=== PATIENT | female | born 1955 | race African-American/Black ===

== ENCOUNTER 2016-07-24 12:41 | Emergency (ER) | payer OTHER ==
--- NOTE | 2016-07-24 12:59 | ER Document Report ---
ED Medical Screen (RME) - General Chief Complaint: Leg Pain Stated Complaint: BACK PAIN Mode of Arrival: Ambulatory Information source: Patient Notes: 61 y/o F presents to ED c/o lower back pain which radiates to left buttocks over the last 2 days. Denies obvious injury or trauma. Reports similar episodes in the past. Denies fever, saddle numbness, or incontinence. Received 60 mg IM Toradol prior to arrival. I have greeted and performed a rapid initial assessment of this patient. A comprehensive ED assessment and evaluation of the patient, analysis of test results and completion of the medical decision making process will be conducted by additional ED providers. TRAVEL OUTSIDE OF THE [place] IN LAST 30 DAYS: No - Related Data Allergies/Adverse Reactions: No Known Allergies Allergy (Verified 07/24/16 12:50) Past Medical History - Social History Chew tobacco use (# tins/day): No Frequency of alcohol use: None Drug Abuse: None Endocrine Medical History: Reports: Hx Diabetes Mellitus Type 2 Renal/ Medical History: Denies: Hx Peritoneal Dialysis - Immunizations Hx Diphtheria, Pertussis, Tetanus Vaccination: No Physical Exam - Vital signs Vitals: Temp Pulse Resp BP Pulse Ox 98.0 F 67 18 177/68 H 96 07/24/16 12:52 07/24/16 12:52 07/24/16 12:52 07/24/16 12:52 07/24/16 12:52 - General General appearance: Appears well, Alert In distress: None - Respiratory Respiratory status: No respiratory distress - Neurological Neuro grossly intact: Yes Cognition: Normal Orientation: AAOx4 Hamilton Coma Scale Eye Opening: Spontaneous Hamilton Coma Scale Verbal: Oriented Hamilton Coma Scale Motor: Obeys Commands Hamilton Coma Scale Total: 15 Speech: Normal Course - Vital Signs Vital signs: Temp Pulse Resp BP Pulse Ox 98.0 F 67 18 177/68 H 96 07/24/16 12:52 07/24/16 12:52 07/24/16 12:52 07/24/16 12:52 07/24/16 12:52
[2016-07-24] MEDS ORDERED: DIAZEPAM INJ 10 MG/2 ML DISP.SYRIN IM ONE (17:06)
--- NOTE | 2016-07-24 17:11 | ER Document Report ---
HPI - HPI Onset: Other - 2 days Quality of pain: Stabbing Severity: Moderate Pain Level: 2 Context: Patient presents to the emergency department with complaints of left buttocks pain that goes down her left leg. 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 She denies trauma, denies urinary or bowel incontinence/retention. Denies numbness or tingling. She reports her left buttock started hurting 2 days ago. Today she went to see her primary care provider by name and hurt so bad that they sent her here. Patient reports irregular shot of Toradol while she was there and it helped for a while but now the pain is coming back. She denies back pain. She denies other symptoms such as fever vomiting diarrhea. She reports she had the flu 2 weeks ago. She denies loss of weight cancers or history of IV drug use, or steroid injections. 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 Lives with: Family Family History: None Patient has suicidal ideation: No Patient has homicidal ideation: No - Past Medical History Cardiac Medical History: Reports: Hx Hypertension Endocrine Medical History: Reports: Hx Diabetes Mellitus Type 2 Renal/ Medical History: Denies: Hx Peritoneal Dialysis Surgical Hx: Negative - Immunizations Hx Diphtheria, Pertussis, Tetanus Vaccination: No Vertical Provider Document - CONSTITUTIONAL Agree With Documented VS: Yes Exam Limitations: No Limitations General Appearance: WD/WN, Moderate Distress - guarding her buttocks, pushes my hand away when I palpate the area - INFECTION CONTROL TRAVEL OUTSIDE OF THE [place] IN LAST 30 DAYS: No - HEENT HEENT: Atraumatic, Normocephalic - NECK Neck: Normal Inspection, Supple - RESPIRATORY Respiratory: Breath Sounds Normal, No Respiratory Distress O2 Sat by Pulse Oximetry: 96 - CARDIOVASCULAR Cardiovascular: Regular Rate - GI/ABDOMEN Gastrointestinal: Abdomen Soft, Abdomen Non-Tender - BACK Back: Normal Inspection - denies low back pain, good distal movement and sensation - MUSCULOSKELETAL/EXTREMETIES Musculoskeletal/Extremeties: Tender - left buttock ttp, ttp down left leg - NEURO Level of Consciousness: Awake, Alert, Appropriate Motor/Sensory: No Motor Deficit - DERM Integumentary: Warm, Dry Course - Re-evaluation Re-evalutation: 07/24/16 17:47 Patient looks and feels better. Up walking around the room. Instructed on medications and importance of follow-up with her primary care provider for recheck. She verbalized understanding. The patient presents with lleft sided buttock pain denies back pain, without signs of spinal cord compression, cauda equine syndrome, infection, aneurysm, or other serious etiology. The patient is neurologically intact. The patient has good distal movement and sensation, denies urinary or bowel incontinence/ retention. Given the extremely low risk of these diagnosis, further testing and evaluation for these possibilities does not appear to be indicated at this time. The patient has been instructed to return if the symptoms worsen or change in anyway. - Vital Signs Vital signs: Temp Pulse Resp BP Pulse Ox 98.0 F 67 18 177/68 H 96 07/24/16 12:52 07/24/16 12:52 07/24/16 12:52 07/24/16 12:52 07/24/16 12:52 Discharge - Discharge Clinical Impression: Left buttock pain, Elevated blood pressure reading Sciatica Qualifiers: Laterality: left Qualified Code(s): M54.32 - Sciatica, left side Condition: Stable Disposition: HOME, SELF-CARE Instructions: Muscle Relaxers ([facility]), Oral Narcotic Medication ([facility]), Sciatica ( [facility]), Ibuprofen (General) ([facility]) Additional Instructions: *You have been evaluated for left buttocks pain, sciatica *Monitor your blood pressure. Your blood pressure was elevated today. This may be because you were anxious, in pain or because you need medication. It is important to follow up with your primary care provider for full evaluation. *Take medication as prescribed *Rest *Follow up with a primary care provider within one week for recheck *Return to ED for worsening condition, changes, needs Prescriptions: Cyclobenzaprine HCl [Flexeril 5 mg Tablet] 5 mg PO TID #15 tablet Hydrocodone/Acetaminophen [[place] 5-325 Tablet] 1 each PO QID #15 tablet Ibuprofen [Motrin 800 mg Tablet] 800 mg PO TID #30 tablet Forms: Elevated Blood Pressure, Return to Work
[2016-07-24 17:58] VITALS: BP 183/89
== END 2016-07-24 17:58 | disposition home or self-care (01) ==
LOC: ER 12:41
DX: M54.32 Sciatica, left side (principal); M79.1 Myalgia; I10 Essential (primary) hypertension; E11.9 Type 2 diabetes mellitus without complications
CPT/HCPCS: 99283; 96372; J3360

== ENCOUNTER → 2017-07-25 | Outpatient (CLI) | payer OTHER ==
--- NOTE | 2017-07-25 12:51 | RADIOLOGY REPORT (SQ) ---
EXAM DESCRIPTION: HIP LEFT AP/LATERAL COMPLETED DATE/TIME: 07/25/2017 11:15 am REASON FOR STUDY: M25.552 PAIN IN LEFT HIP COMPARISON: None. NUMBER OF VIEWS: Two views left hip, AP pelvis and frog lateral. LIMITATIONS: None. FINDINGS: Normal bone density with relative maintenance and symmetry of the bilateral hip joint spac es. SI joints intact. Mild lower lumbar spondylosis. No fracture or suspicious bone lesion. OTHER: No other significant finding. IMPRESSION: As above. Hips look relatively maintained. TECHNICAL DOCUMENTATION: JOB ID: [id number]
== END ==
LOC: RAD 10:59
PROVIDERS: ATTEND Physician Assistant
DX: M25.552 Pain in left hip (principal)

== ENCOUNTER → 2018-03-25 | Outpatient (CLI) | payer OTHER ==
--- NOTE | 2018-03-26 13:08 | WOMENS IMAGING REPORT ---
EXAM DESCRIPTION: 3D SCREENING MAMMO BILAT COMPLETED DATE/TIME: 03/25/2018 2:56 pm REASON FOR STUDY: SCREENING MAMMO Z12.31 ENCNTR SCREEN MAMMOGRAM FOR MALIGNANT NEOPLASM OF TRENT COMPARISON: 2011, 2012 TECHNIQUE: Standard craniocaudal and mediolateral oblique views of each breast recorded using digita l acquisition and breast tomosynthesis. LIMITATIONS: None. FINDINGS: No masses, calcifications or architectural distortion. No areas of suspicion. Read with the assistance of CAD. .[facility] - R2 [employer] Version 1.3 .[facility] - R2 Cenova Version 1.3 .[facility] - R2 Cenova Version 2.4 .[facility] - R2 Cenova Version 2.4 .[facility] - R2 [employer] Version 9.2 IMPRESSION: NORMAL MAMMOGRAM. BIRADS 1. BREAST DENSITY: b. There are scattered areas of fibroglandular density. BIRAD: 1 NEGATIVE RECOMMENDATION: ROUTINE SCREENING COMMENT: The patient has been notified of the results by letter per SA requirements. Additional no tification policies are in place for contacting patient with suspicious or incomplete findings. Quality ID #[id number]: The [employer] recommends an annual screening mammogram for women aged 40 years or over. This facility utilizes a reminder system to ensure that all patients receive reminder letters, and/or direct phone calls for appointments. This includes reminders for routine scr eening mammograms, diagnostic mammograms, or other Breast Imaging Interventions when appropriate. Th is patient will be placed in the appropriate reminder system. The [employer] (ACR) has developed recommendations for screening MRI of the breast s in certain patient populations, to be used in conjunction with mammography. Breast MRI surveillanc e may be appropriate for women with more than 20% lifetime risk of developing breast cancer as deter mined by genetic testing, significant family history of the disease, or history of mantle radiation f or Hodgkins Disease. ACR Practice Guidelines 2008. DBT Technology DBT is a type of tomographic mammography. With conventional mammography, overlapping breast tissue ma y make lesions difficult to detect, even with good compression. DBT uses an x-ray tube that rotates a round the breast, taking images at different angles. These images are then combined to create thin sl ices of the breast that the radiologist can view as a 3D reconstruction. The [employer] unit can perform full-field digital mammograms (2D imaging); or DBT (3D imaging); or both, in a combination mode that quickly performs both the mammogram and the tomosynthesis scan while the breast is still compressed. PQRS 6045F: Fluoroscopic imaging is not utilized for breast tomosynthesis. TECHNICAL DOCUMENTATION: FINDING NUMBER: (1) ASSESSMENT: (1) JOB ID: [id number] [employer]- All Rights Reserved Reading location - IP/workstation name: [facility]
== END ==
LOC: WI 14:37
PROVIDERS: ATTEND Physician Assistant
DX: Z12.31 Encounter for screening mammogram for malignant neoplasm of breast (principal)
CPT/HCPCS: 77063; 77067